=== PATIENT | male | born 2000 | race Caucasian/White ===

== ENCOUNTER → 2018-01-16 | Day surgery (SDC) | payer OTHER ==
[~2018-01-16] MED LIST: LIDOCAINE 1% INJ-PF (10 MG/ML) 30 ML SDV ONE
--- NOTE | 2018-01-16 09:23 | RADIOLOGY REPORT (SQ) ---
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 FLUOROSCOPY TIME: 30 seconds 1 digital radiographic image saved to PACS. LIMITATIONS: None. PROCEDURE: Procedure, risks, benefits and alternatives explained to patient who then gave written co nsent. The posterior left glenohumeral jointwas marked and a time out was called for correct procedur e verification. Posterior entry site marked using fluoroscopic guidance. Shoulder prepped and drape d using sterile technique. Local anesthesia achieved using 6 mL of 1% lidocaine injection. 22 gauge spinal needle introduced into the joint space under direct fluoroscopic visualization. Non-ionic con trast instilled to confirm intra-articular position. Dilute gadolinium solution then injected. Needl e removed and entry site covered with sterile bandage. No immediate complications noted. TECHNIQUE: Digital images acquired during fluoroscopy and stored on PACS. Patient immediately take n to the MR suite for additional imaging. INJECTION LOCATION: Left posterior glenohumeral joint CONTRAST TYPE AND AMOUNT: 1 mL of Isovue-300 was injected to confirm intra-articular needle placement followed by 10 mL of dilute Prohance/Saline mixture. IMPRESSION: SUCCESSFUL NEEDLE PLACEMENT AND INJECTION FOR LEFT SHOULDER MR ARTHROGRAM USING POSTERIO R APPROACH. COMMENT: Quality ID 145: Final reports for procedures using fluoroscopy that document radiation exp osure indices, or exposure time and number of fluorographic images (if radiation exposure indices are not available) TECHNICAL DOCUMENTATION: JOB ID: [id number] [employer]- All Rights Reserved Reading location - IP/workstation name: [facility]
--- NOTE | 2018-01-16 09:23 | RADIOLOGY REPORT (SQ) ---
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 FLUOROSCOPY TIME: 30 seconds 1 digital radiographic image saved to PACS. LIMITATIONS: None. PROCEDURE: Procedure, risks, benefits and alternatives explained to patient who then gave written co nsent. The posterior left glenohumeral jointwas marked and a time out was called for correct procedur e verification. Posterior entry site marked using fluoroscopic guidance. Shoulder prepped and drape d using sterile technique. Local anesthesia achieved using 6 mL of 1% lidocaine injection. 22 gauge spinal needle introduced into the joint space under direct fluoroscopic visualization. Non-ionic con trast instilled to confirm intra-articular position. Dilute gadolinium solution then injected. Needl e removed and entry site covered with sterile bandage. No immediate complications noted. TECHNIQUE: Digital images acquired during fluoroscopy and stored on PACS. Patient immediately take n to the MR suite for additional imaging. INJECTION LOCATION: Left posterior glenohumeral joint CONTRAST TYPE AND AMOUNT: 1 mL of Isovue-300 was injected to confirm intra-articular needle placement followed by 10 mL of dilute Prohance/Saline mixture. IMPRESSION: SUCCESSFUL NEEDLE PLACEMENT AND INJECTION FOR LEFT SHOULDER MR ARTHROGRAM USING POSTERIO R APPROACH. COMMENT: Quality ID 145: Final reports for procedures using fluoroscopy that document radiation exp osure indices, or exposure time and number of fluorographic images (if radiation exposure indices are not available) TECHNICAL DOCUMENTATION: JOB ID: [id number] [employer]- All Rights Reserved Reading location - IP/workstation name: [facility]
--- NOTE | 2018-01-16 10:12 | RADIOLOGY REPORT (SQ) ---
EXAM DESCRIPTION: MRI LT UPPER JOINT WITH COMPLETED DATE/TIME: 01/16/2018 9:49 am REASON FOR STUDY: LT SHOULDER DISLOCATION COMPARISON: None. TECHNIQUE: Left shoulder images acquired and stored on PACS. Oblique coronal, oblique sagittal, and axial imaging to include fat sensitive sequences as T1, water sensitive sequences as FST2/STIR, and c ontrast sensitive sequences as FST1. LIMITATIONS: None. FINDINGS: JOINT DISTENTION: Adequate distention for interpretation. No leakage of intra-articular c ontrast into the subacromial/subdeltoid bursa. BONE MARROW AND CORTEX: Subacute Hill-Sachs deformity on axial image 7 with minimal marrow edema. No bony Bankart lesion. AC JOINT: Type II acromion. No significant AC joint arthropathy. GLENOHUMERAL JOINT: No subluxation or dislocation. No focal chondral defects or reactive bone changes . ROTATOR CUFF: Intact without significant tendinopathy, partial or full-thickness tears. No peritendin itis. LABRUM AND BICEPS LABRAL COMPLEX: Intra-articular long head biceps tendon is intact. However there i s a diffuse superior labrum tear extending into the posterosuperior labrum and throughout the entire anterior labrum. No paralabral cysts. This is best shown on sagittal image 13 and axial images 6-11 . INFERIOR LABRAL COMPLEX: Anterior inferior labral tear. Bony glenoid intact. IGHL intact without thi ckening or tear. No paralabral cysts. ADJACENT SOFT TISSUES: No masses or nodes. OTHER: No other significant finding. IMPRESSION: Superior labral tear extending anteriorly and posteriorly Hill-Sachs deformity, no bony Bankart lesion. TECHNICAL DOCUMENTATION: JOB ID: [id number] [employer]- All Rights Reserved Reading location - IP/workstation name: [email or web address]
== END ==
LOC: RAD 08:30
PROVIDERS: ATTEND Physician Assistant Medical
DX: S43.432A Superior glenoid labrum lesion of left shoulder, initial encounter (principal); X58.XXXA Exposure to other specified factors, initial encounter
CPT/HCPCS: 73222; 77002; 23350; A9576; J3490